=== PATIENT | male | born 1945 | race Two or more races ===

== ENCOUNTER 2025-03-18 10:22 | Emergency (ER) | payer MEDICARE, OTHER ==
[~2025-03-18] VITALS: Ht 172.7 cm; Wt 68.0 kg
[2025-03-18 10:56] LABS: PLATELET COUNT (AUTO) 183 K/uL (150-450); RED BLOOD CELL COUNT(AUTO) 4.29 MIL/uL (4.5-6.0); RED CELL DISTRIBUTION WIDTH 14.2 % (11.5-15.0); WHITE BLOOD COUNT (AUTO) 4.9 K/uL (4.3-11.0)
[2025-03-18 11:01] LABS: CALCIUM, SERUM 8.9 mg/dL (8.5-10.1); CREATININE 0.6 mg/dL (0.6-1.3); SODIUM SERUM 138 mmol/L (136-145); UREA NITROGEN, BLOOD 15 mg/dL (7-18)
[2025-03-18 11:05] LABS: APPEARANCE,URINE CLEAR (CLEAR); BLOOD, URINE Negative Ery/uL (NEGATIVE); INR 1.18 (0.91-1.10); LEUKOCYTE ESTERASE ,URINE Negative (NEGATIVE); NITRITE, URINE NEGATIVE (NEGATIVE); UGLUCOSE Negative (NEGATIVE)
[2025-03-18 11:07] LABS: ASPARTATE AMINOTRANSFERASE 18 U/L (15-37); TOTAL PROTEIN, SERUM 6.8 g/dL (6.4-8.2)
[2025-03-18 12:37] VITALS: BP 136/79; TEMP 97.7; O2SAT 99
== END 2025-03-18 12:37 | disposition home or self-care (01) ==
LOC: ER 10:24
DX: R55 Syncope and collapse (principal); R51.9 Headache, unspecified; I10 Essential (primary) hypertension; E11.9 Type 2 diabetes mellitus without complications
CPT/HCPCS: 36415; 70450-TC; 71045-TC; 80048-TC; 80076-TC; 82962-TC; 84484-TC; 85025-TC; 85730-TC